=== PATIENT | female | born 1985 | race Caucasian/White ===

== ENCOUNTER 2021-08-14 12:31 | Emergency (ER) | payer SELFPAY ==
[~2021-08-14] VITALS: Ht 165.1 cm; Wt 81.6 kg
--- NOTE | 2021-08-14 12:40 | NUR ---
MED ZABALA "was coming off work got dizzy/fainted/+nausea". On room air, breathing evenly and unlabored. Denies alcohol or drugs use. Kept comfortable, will continue to monitor accordingly. Connected to the monitor and pulse ox.
[2021-08-14] MEDS ORDERED: ONDANSETRON HCL/PF 4 MG/2 ML VIAL ONE (12:56)
[2021-08-14] MEDS ORDERED: ONDANSETRON HCL/PF 4 MG/2 ML VIAL IV ONE (13:00)
[2021-08-14] MEDS ORDERED: IV NS 0.9% 1,000 ML BAG IV ONE (13:00)
[2021-08-14 13:17] LABS: BASOPHILS # (AUTO) 0.1 K/uL (0.0-0.2); BASOPHILS % (AUTO) 0.6 % (0.0-2.0); EOSINOPHILS % (AUTO) 0.1 % (0.0-6.0); HEMATOCRIT 43 % (33-45); HEMOGLOBIN 14.6 g/dL (11.5-14.8); LYMPHOCYTES # (AUTO) 2.5 K/uL (0.8-4.8); LYMPHOCYTES % (AUTO) 16.7 % (20.0-44.0); MEAN CORPUSCULAR HGB CONC 34 g/dl (31.0-36.0); MEAN CORPUSCULAR VOLUME 93 fL (82-100); MONOCYTES # (AUTO) 0.5 K/uL (0.1-1.30); MONOCYTES % (AUTO) 3.3 % (2.0-12.0); NEUTROPHILS # (AUTO) 11.8 K/uL (1.8-8.9); NEUTROPHILS % (AUTO) 79.3 % (43.0-81.0); PLATELET COUNT (AUTO) 343 K/uL (150-450); RED BLOOD CELL COUNT(AUTO) 4.68 MIL/uL (4.0-5.2); WHITE BLOOD COUNT (AUTO) 14.9 K/uL (4.3-11.0)
[2021-08-14 13:28] LABS: CALCIUM, SERUM 8.7 mg/dL (8.5-10.1); CREATININE 0.8 mg/dL (0.6-1.3); POTASSIUM 3.7 mmol/L (3.5-5.1)
--- NOTE | 2021-08-14 15:04 | NUR ---
ROSSANA MOTHER [phone]
--- NOTE | 2021-08-14 15:28 | NUR ---
BROTHER ELIF [phone]
[2021-08-14] MEDS ORDERED: ONDA4TAB5 PO (15:36)
[2021-08-14] MEDS ORDERED: IBUP-1955 PO (15:36)
--- NOTE | 2021-08-14 15:58 | NUR ---
IV removed. Catheter intact and site benign. Pressure and 4x4 applied to site. No bleeding noted.Patient discharged to home in stable condition. Written and verbal after care instructions given. Patient verbalizes understanding of instruction.
[2021-08-14 15:59] VITALS: BP 110/66
== END 2021-08-14 15:59 | disposition home or self-care (01) ==
LOC: ER 12:38
DX: R55 Syncope and collapse (principal); R11.0 Nausea; B34.9 Viral infection, unspecified; Z20.822 Contact with and (suspected) exposure to COVID-19; D72.829 Elevated white blood cell count, unspecified
CPT/HCPCS: 36415; 71045; 80048; 84703; 85025; 87804; 93005; 96361; 96374; 99285; C9803; J2405; J7030; U0003